=== PATIENT | male | born 1970 | race Caucasian/White ===

== ENCOUNTER 2019-04-14 13:05 | Outpatient (CLI) | payer OTHER | END 2019-04-14 13:06 | disposition critical access hospital (66) | LOC: EMS 13:05 | PROVIDERS: ATTEND Surgery | DX: R55 Syncope and collapse (principal) | CPT/HCPCS: A0425; A0429 ==

== ENCOUNTER 2019-04-14 13:25 | Emergency (ER) | payer OTHER ==
--- NOTE | 2019-04-14 13:55 | XRAY Report ---
Reason: Chest Pain Procedure Date: 04/14/2019 Accession Number: [id number] / [id number] Procedure: XR - Chest 1 View X-Ray CPT Code: 64698 Final Report FULL RESULT: EXAM: CHEST RADIOGRAPHY EXAM DATE: 04/14/2019 01:49 PM. CLINICAL HISTORY: Dry cough for 1 week, chest pain, syncopal episode. COMPARISON: None. TECHNIQUE: 1 view. FINDINGS: Lungs/Pleura: No focal opacities evident. No pleural effusion. No pneumothorax. Mediastinum: Within exam limitations, the cardiomediastinal contour is normal. Other: None. IMPRESSION: Normal single view chest. RADIA
[2019-04-14 14:00] LABS: BASOPHILS % (AUTO) 0.2 %; EOSINOPHILS # (AUTO) 0.1 10^3/uL (0.0-0.7); EOSINOPHILS % (AUTO) 0.9 %; HGB - HEMOGLOBIN 15.4 g/dL (14.0-18.0); LYMPHOCYTES # (AUTO) 0.8 10^3/uL (1.5-3.5); LYMPHOCYTES % (AUTO) 6.4 %; MEAN CORPUSCULAR HEMOGLOBIN 31.5 pg (27.0-31.0); MEAN CORPUSCULAR HGB CONC 33.2 g/dL (32.0-36.0); MEAN CORPUSCULAR VOLUME 94.9 fL (80.0-94.0); MONOCYTES # (AUTO) 0.8 10^3/uL (0.0-1.0); MONOCYTES % (AUTO) 6.4 %; NEUTROPHILS # (AUTO) 11.2 10^3/uL (1.5-6.6); NEUTROPHILS % (AUTO) 85.7 %; PLT - PLATELET COUNT 233 10^3/uL (130-450); RED BLOOD COUNT 4.89 10^6/uL (4.70-6.10); RED CELL DISTRIBUTION WIDTH 11.7 % (12.0-15.0); WHITE BLOOD COUNT 13.1 x10^3/uL (4.8-10.8)
[2019-04-14 14:14] LABS: ALBUMIN 4.4 g/dL (3.2-5.5); ALBUMIN/GLOBULIN RATIO 1.3 (1.0-2.2); BILIRUBIN,TOTAL 0.7 mg/dL (0.2-1.0); CALCIUM 9.2 mg/dL (8.5-10.3); CREATININE 0.9 mg/dL (0.6-1.2); TOTAL PROTEIN 7.9 g/dL (6.7-8.2)
[2019-04-14] MEDS ORDERED: SODIUM CHLORIDE 0.9% 1,000 ML IV ONE (14:25)
--- NOTE | 2019-04-14 14:34 | ED Physician Documentation ---
PD HPI SYNCOPE - Stated complaint Stated Complaint: SYNCOPE - Chief complaint Chief Complaint: Neuro - History obtained from History obtained from: Patient, EMS - History of Present Illness Witnessed: Witnessed Timing - onset: Today Duration: Minutes (1) Preceding symptoms: Light headed Associated symptoms: None. No: Seizure, Incontinant of urine, Incontinant of stool, Headache, Vision changes, Chest pain, Palpitations, Diaphoresis, Dyspnea, Nausea / vomiting, Abdominal pain Contributing factors: Decreased PO intake Injury occurred: None Pain level max: 0 Pain level now: 0 - Additional information Additional information: 48-year-old male was at the vets office today when his cat was receiving injections. He began to feel lightheaded and dizzy, had a syncopal event. He states he has a history of similar in the past. He only drinks a small glass of water this morning. Had diarrhea this morning as well. Has a history of ulcerative colitis, but is not currently taking any medications. Review of Systems Ten Systems: 10 systems reviewed and negative Constitutional: denies: Fever, Chills Throat: denies: Sore throat Cardiac: denies: Chest pain / pressure, Palpitations Respiratory: denies: Dyspnea, Cough, Wheezing GI: denies: Abdominal Pain, Nausea, Vomiting, Diarrhea : denies: Dysuria Skin: denies: Rash Musculoskeletal: denies: Neck pain, Back pain Neurologic: denies: Focal weakness, Numbness, Seizure, Headache PD PAST MEDICAL HISTORY - Past Medical History Past Medical History: Yes GI: Ulcerative colitis - Past Surgical History Past Surgical History: Yes - Present Medications Home Medications: Ambulatory Orders Medication Instructions Recorded Confirmed No Known Home Medications 04/14/19 04/14/19 - Allergies Allergies/Adverse Reactions: Allergies Allergy/AdvReac Type Severity Reaction Status Date / Time No Known Drug Allergies Allergy Verified 04/14/19 13:35 - Social History Does the pt smoke?: No Smoking Status: Never smoker Does the pt drink ETOH?: No Does the pt have substance abuse?: No - Immunizations Immunizations: TDAP >10years/unknown PD ED PE NORMAL - Vitals Vital signs reviewed: Yes - General General: Alert and oriented X 3, No acute distress, Well developed/nourished - HEENT HEENT: Atraumatic, PERRL, EOMI, Pharynx benign, Other (Dry lips and tongue) - Neck Neck: Supple, no meningeal sign, No bony TTP - Cardiac Cardiac: RRR, No murmur, Strong equal pulses - Respiratory Respiratory: No respiratory distress, Clear bilaterally - Abdomen Abdomen: Soft, Non tender, Non distended - Derm Derm: Warm and dry, No rash - Extremities Extremities: No edema - Neuro Neuro: Alert and oriented X 3 - Psych Psych: Normal mood, Normal affect Results - Vitals Vitals: Vital Signs - 24 hr 04/14/19 04/14/19 04/14/19 13:25 14:02 14:30 Temperature 36.6 C Heart Rate 83 72 76 Respiratory 16 12 13 Rate Blood Pressure 123/87 H 104/83 H 119/81 H O2 Saturation 98 97 98 04/14/19 04/14/19 15:30 16:00 Temperature Heart Rate 92 96 Respiratory 14 12 Rate Blood Pressure 133/84 H 125/77 O2 Saturation 98 99 Oxygen O2 Source Room air - EKG (time done) 1342 Rate: Rate (enter#) (78) Rhythm: NSR Valera: Normal Intervals: Normal [place] QRS: Normal Ischemia: Non specific changes - Labs Labs: Laboratory Tests 04/14/19 04/14/19 04/14/19 13:54 13:54 13:54 WBC 13.1 H RBC 4.89 Hgb 15.4 Hct 46.4 MCV 94.9 H MCH 31.5 H MCHC 33.2 RDW 11.7 L Plt Count 233 MPV 10.0 Neut # (Auto) 11.2 H Lymph # (Auto) 0.8 L Winn # (Auto) 0.8 Eos # (Auto) 0.1 Baso # (Auto) 0.0 Absolute Nucleated RBC 0.00 Nucleated RBC % 0.0 Sodium 139 Potassium 4.3 Chloride 98 L Carbon Dioxide 28 Anion Gap 13.0 BUN 19 Creatinine 0.9 Estimated GFR (MDRD) 89 Glucose 101 H Calcium 9.2 Total Bilirubin 0.7 AST 23 ALT 31 Alkaline Phosphatase 100 Troponin I High Sens 2.7 Total Protein 7.9 Albumin 4.4 Globulin 3.5 Albumin/Globulin Ratio 1.3 Lipase 39 - Rads (name of study) Chest x-ray Radiology: Prelim report reviewed, EMP read contemporaneously, See rad report (Normal single view chest. ) PD MEDICAL DECISION MAKING - ED course Complexity details: reviewed results, re-evaluated patient, considered differential, d/w patient ED course: 48-year-old male presents the emergency department after what sounds like a vasovagal syncopal event today. No evidence of cardiac arrhythmia. No signif icant lab abnormalities. Feels better after IV fluids. We will continue supportive care and have him follow-up with his doctor for further care. Patient counseled regarding signs and symptoms for which I believe and urgent re-evaluation would be necessary. Patient with good understanding of and agreement to plan and is comfortable going home at this time This document was made in part using voice recognition software. While efforts are made to proofread this document, sound alike and grammatical errors may occur. Departure - Departure Disposition: 01 Home, Self Care Clinical Impression: Vasovagal syncope Condition: Good Instructions: ED Syncope Vasovagal Follow-Up: your,doctor in 1 week [Other] Comments: Drink plenty of fluids. Return if you worsen. Follow-up with your doctor as needed for further care. Discharge Date/Time: 04/14/19 16:34
[2019-04-14 16:30] VITALS: BP 125/77
== END 2019-04-14 16:34 | disposition home or self-care (01) ==
LOC: ED 13:25
DX: R55 Syncope and collapse (principal)
CPT/HCPCS: 36415; 71045; 80053; 83690; 84484; 85025; 93005; 96360; 99284

== ENCOUNTER 2019-04-30 08:00 | Outpatient (CLI) | payer OTHER ==
[2019-04-30 18:26] LABS: BASOPHILS % (AUTO) 0.3 %; EOSINOPHILS # (AUTO) 0.1 10^3/uL (0.0-0.7); EOSINOPHILS % (AUTO) 1.3 %; HGB - HEMOGLOBIN 14.4 g/dL (14.0-18.0); LYMPHOCYTES # (AUTO) 1.4 10^3/uL (1.5-3.5); LYMPHOCYTES % (AUTO) 20.1 %; MEAN CORPUSCULAR HEMOGLOBIN 31.4 pg (27.0-31.0); MEAN PLATELET VOLUME 10.5 fL (7.4-11.4); MONOCYTES # (AUTO) 0.5 10^3/uL (0.0-1.0); MONOCYTES % (AUTO) 7.8 %; NEUTROPHILS # (AUTO) 4.8 10^3/uL (1.5-6.6); NEUTROPHILS % (AUTO) 70.1 %; PLT - PLATELET COUNT 259 10^3/uL (130-450); RED BLOOD COUNT 4.59 10^6/uL (4.70-6.10); RED CELL DISTRIBUTION WIDTH 12.1 % (12.0-15.0); WHITE BLOOD COUNT 6.8 x10^3/uL (4.8-10.8)
[2019-04-30 18:44] LABS: ALBUMIN 4.3 g/dL (3.2-5.5); ALBUMIN/GLOBULIN RATIO 1.4 (1.0-2.2); BILIRUBIN,TOTAL 0.5 mg/dL (0.2-1.0); CREATININE 0.7 mg/dL (0.6-1.2); TOTAL PROTEIN 7.3 g/dL (6.7-8.2)
== END 2019-04-30 23:59 | disposition home or self-care (01) ==
LOC: LAB.WCP 08:00
PROVIDERS: ATTEND Family Medicine
DX: R41.3 Other amnesia (principal); K51.90 Ulcerative colitis, unspecified, without complications; R55 Syncope and collapse
CPT/HCPCS: 36415; 80053; 84443; 85025

== ENCOUNTER 2020-05-31 08:02 | Outpatient (CLI) | payer OTHER ==
[2020-05-31 12:56] LABS: BASOPHILS % (AUTO) 0.1 %; EOSINOPHILS # (AUTO) 0.2 10^3/uL (0.0-0.7); HCT - HEMATOCRIT 45.3 % (42.0-52.0); HGB - HEMOGLOBIN 15.1 g/dL (14.0-18.0); LYMPHOCYTES # (AUTO) 2.3 10^3/uL (1.5-3.5); LYMPHOCYTES % (AUTO) 31.2 %; MEAN CORPUSCULAR HEMOGLOBIN 32.2 pg (27.0-31.0); MEAN CORPUSCULAR HGB CONC 33.3 g/dL (32.0-36.0); MEAN CORPUSCULAR VOLUME 96.6 fL (80.0-94.0); MEAN PLATELET VOLUME 10.4 fL (7.4-11.4); MONOCYTES # (AUTO) 0.7 10^3/uL (0.0-1.0); MONOCYTES % (AUTO) 10.2 %; NEUTROPHILS % (AUTO) 55.2 %; PLT - PLATELET COUNT 229 10^3/uL (130-450); RED BLOOD COUNT 4.69 10^6/uL (4.70-6.10); RED CELL DISTRIBUTION WIDTH 11.9 % (12.0-15.0); WHITE BLOOD COUNT 7.2 x10^3/uL (4.8-10.8)
[2020-05-31 14:10] LABS: ALBUMIN 4.1 g/dL (3.2-5.5); ALBUMIN/GLOBULIN RATIO 1.4 (1.0-2.2); ALKALINE PHOSPHATASE 74 IU/L (42-121); ALT ALANINE AMINOTRANSFERASE 17 IU/L (10-60); AST ASPARTATE AMINOTRANSFERASE 18 IU/L (10-42); BILIRUBIN,TOTAL 0.6 mg/dL (0.2-1.0); BUN - BLOOD UREA NITROGEN 21 mg/dL (6-20); CARBON DIOXIDE - CO2 25 mmol/L (21-32); CHLORIDE 101 mmol/L (101-111); CHOL/HDL RATIO 4.3 (<5.0); CHOLESTEROL 186 mg/dL; CREATININE 1.1 mg/dL (0.6-1.2); GFR - MDRD 71 (>89); GLUCOSE 98 mg/dL (70-100); HDL CHOLESTEROL 43 mg/dL; LDL CHOLESTEROL,CALCULATED 106 mg/dL; LDL/HDL RATIO 2.5 (<3.6); POTASSIUM 3.9 mmol/L (3.5-5.0); SODIUM 134 mmol/L (135-145); TRIGLYCERIDES 183 mg/dL; VLDL CHOLESTEROL 37 mg/dL
== END 2020-05-31 23:59 | disposition home or self-care (01) ==
LOC: LAB.WCP 08:02
PROVIDERS: ATTEND Family Medicine
DX: Z00.00 Encounter for general adult medical examination without abnormal findings (principal); Z12.5 Encounter for screening for malignant neoplasm of prostate
CPT/HCPCS: 36415; 80053; 80061; 83721; 84153; 85025

== ENCOUNTER 2020-06-03 17:42 | Outpatient (CLI) | payer OTHER | END 2020-06-03 17:43 | disposition home or self-care (01) | LOC: COV 17:42 | PROVIDERS: ATTEND Surgery | DX: Z01.812 Encounter for preprocedural laboratory examination (principal); K40.90 Unilateral inguinal hernia, without obstruction or gangrene, not specified as recurrent; Z20.822 Contact with and (suspected) exposure to COVID-19 ==

== ENCOUNTER 2020-06-07 10:00 | Day surgery (SDC) | payer OTHER ==
[~2020-06-07 10:00] MED LIST: ceFAZolin 2 GM/50 ML 2 GM/50 ML BAG IV ONE
[2020-06-07] MEDS ORDERED: ceFAZolin 1 GM VIAL ONE (10:54)
[2020-06-07] MEDS ORDERED: LIDOCAINE 2%-EPI 1:100000 20 ML MDV ONE (10:55)
[2020-06-07] MEDS ORDERED: BUPIVACAINE 0.5% PF 30 ML VIAL ONE (10:55)
[2020-06-07] MEDS ORDERED: SODIUM CHLORIDE 0.9% 10 ML ONE (10:55)
[2020-06-07] MEDS ORDERED: LACTATED RINGERS 1,000 ML IV ONE ×3 (10:59→12:47)
[2020-06-07] MEDS ORDERED: METOCLOPRAMIDE 10 MG/2 ML VIAL IVP PRN (11:09)
[2020-06-07] MEDS ORDERED: ONDANSETRON 4 MG/2 ML VIAL IVP PRN ×2 (11:09→12:29)
[2020-06-07] MEDS ORDERED: fentaNYL 100 MCG/2 ML VIAL IVP PRN (11:09)
[2020-06-07] MEDS ORDERED: NALOXONE 0.4 MG/ML VIAL IVP PRN (11:09)
[2020-06-07] MEDS ORDERED: HYDROmorphone 0.5 MG/0.5 ML SYRINGE IVP PRN (11:09)
[2020-06-07] MEDS ORDERED: ATROPINE ABBOJECT 1 MG/10 ML SYRINGE IVP PRN (11:09)
[2020-06-07] MEDS ORDERED: ePHEDrine 50 MG/ML VIAL IVP PRN (11:09)
[2020-06-07] MEDS ORDERED: MORPHINE 2 MG/ML CARPUJECT IVP PRN (11:09)
--- NOTE | 2020-06-07 11:09 | ANESTHESIA ---
Pre-Anesthesia VS, & Labs - Diagnosis left inguinal hernia - Procedure left inguinal hernia repair Vital Signs: Temp Pulse Resp BP Pulse Ox 36.8 C 77 16 124/80 99 06/07/20 10:16 06/07/20 10:16 06/07/20 10:16 06/07/20 10:16 06/07/20 10:16 Height: 5 ft 9 in Weight (kg): 73.1 kg Body Mass Index: 23.8 BMI Classification: Healthy weight - NPO >8 hours Home Medications and Allergies No Known Home Medications 04/14/19 Allergies/Adverse Reactions: Allergies Allergy/AdvReac Type Severity Reaction Status Date / Time No Known Drug Allergies Allergy Verified 04/14/19 13:35 Anes History & Medical History - Anesthetic History Anesthesia Complications: reports: No previous complications - Medical History Cardiovascular: reports: None Pulmonary: reports: None Gastrointestinal: reports: Ulcerative colitis Urinary: reports: None Musculoskeletal: reports: None Skin: reports: None Smoking Status: Never smoker History of Cancer?: No Exam General: Alert Dental: WNL Mouth Opening: Greater than 4 Fingerbreadths Neck Mobility: Normal Mallampati classification: II Respiratory: Lungs clear Cardiovascular: Regular rate, Normal S1, Normal S2 Plan Anesthesia Type: General Consent for Procedure(s) Verified and Reviewed: Yes Code Status: Attempt Resuscitation ASA classification: 2-Mild systemic disease Is this case an emergency?: No
[2020-06-07] MEDS ORDERED: ONDANSETRON 4 MG/2 ML VIAL ONE (11:38)
[2020-06-07] MEDS ORDERED: DEXAMETHASONE 4 MG/ML VIAL ONE (11:38)
[2020-06-07] MEDS ORDERED: fentaNYL 100 MCG/2 ML VIAL ONE (11:39)
[2020-06-07] MEDS ORDERED: BUPIVACAINE 0.5% PF 10 ML VIAL IM ONE (11:53)
[2020-06-07] MEDS ORDERED: ceFAZolin 1 GM VIAL IR ONE (11:54)
[2020-06-07] MEDS ORDERED: LIDOCAINE 2%-EPI 1:100000 20 ML MDV SUBQ ONE (11:54)
[2020-06-07] MEDS ORDERED: LACTATED RINGERS 1,000 ML IV SCH (12:00)
--- NOTE | 2020-06-07 12:27 | OPERATIVE REPORT ---
Operative Report - General Procedure Date: 06/07/20 Planned Procedure: Left inguinal hernia repair Pre-Op Diagnosis: Painful and troublesome left inguinal hernia Procedure Performed: Left inguinal hernia repair Post Op Diagnosis: Painful and troublesome left inguinal hernia - Procedure Note Primary Surgeon: Turner Anesthesia Provider: Abraham Anesthesia Technique: General LMA, Local Pathology: None Estimated Blood Loss (mL): 10 Findings: Large indirect inguinal hernia Complications: None apparent - Other Other Information/Narrative: After obtaining informed consent, the patient is brought to the operating room and placed in the supine position on the operating table. Following successful induction of general endotracheal anesthesia, appropriate padding of all bony prominences, and placement of appropriate monitors, the abdomen was prepped and draped in the standard surgical fashion. A timeout was held per scope protocol. All elements of the surgical safety checklist were followed before, during, and after the procedure. We began the procedure by infiltrating a mixture of local anesthetics medial to the anterior superior iliac spine on the left. This was done to create an ileal inguinal nerve block. We then selected a site for an incision in the left lower quadrant just superior and lateral to the pubic tubercle. This area was anesthetized with additional local anesthetic and an incision was created here.The incision was carried down through the skin and subcutaneous tissue to reveal the fascia of the external oblique aponeurosis. Retractor was placed and the aponeurosis was opened in direction of its fibers. The ilioinguinal nerve was immediately identified. We continued by identifying the spermatic cord and gently encircling it with a [place] drain. The hernia sac was carefully dissected free from the cord structures and was noted to be in the inferior medial position. The sac was in the indirect position. We carefully dissected the spermatic cord from the sac. The hernia sac was then placed back into the abdominal cavity. We elected to repair the hernia with a large Prolene hernia system mesh implant. This was dipped in Ancef containing solution and then deployed into the defect. The posterior leaflet was straightened and flattened in the preperitoneal space. The anterior leaflet was then nicked medially to provide a place for the spermatic cord and then closed with a Vicryl suture. The more inferior aspect was then sewn to Jose's ligament medially. Laterally it was tucked under the external beak aponeurosis. The wound was checked for hemostasis and irrigated with warm saline solution. It was aspirated free of all fluid and particulate matter. The extra oblique aponeurosis was then closed with a running locking Vicryl suture Val's fascia was closed with Vicryl suture and Monocryl stitches were placed in the skin. All sponge, needle, and instrument counts were correct at the conclusion of the case. The patient was allowed awaken from anesthesia without difficulty and taken to the postanesthesia care unit in good condition.
[2020-06-07] MEDS ORDERED: IBUPROFEN 600 MG TABLET PO PRN (12:29)
[2020-06-07] MEDS ORDERED: oxyCODONE 5 MG TABLET PO PRN (12:29)
[2020-06-07] MEDS ORDERED: ACETAMINOPHEN 325 MG TABLET PO PRN (12:29)
[2020-06-07] MEDS ORDERED: oxyCODONE 5 MG TABLET ONE (13:14)
[2020-06-07 13:50] VITALS: BP 124/80
--- NOTE | 2020-06-07 14:54 | ANESTHESIA POST OP EVALUATION ---
Anesthesia Post Eval - Post Anesthesia Eval Vitals: Last Vital Signs Temp 36.8 C 06/07/20 13:40 Pulse 77 06/07/20 13:40 Resp 16 06/07/20 13:40 BP 124/80 06/07/20 13:40 Pulse Ox 99 06/07/20 13:40 CV Function Including HR & BP: positive: Stable Pain Control: positive: Satisfactory Nausea & Vomiting: positive: Negative Mental Status: positive: Patient Participates Respiratory Status: Airway Patent Hydration Status: Satisfactory Anesthesia Complications: positive: None
== END 2020-06-07 10:01 | disposition home or self-care (01) ==
LOC: SDS 10:00
PROVIDERS: ATTEND Surgery
DX: K40.90 Unilateral inguinal hernia, without obstruction or gangrene, not specified as recurrent (principal)
CPT/HCPCS: 49505; A9270; C1781; J0690; J7120

== ENCOUNTER 2022-03-23 08:48 | Outpatient (CLI) | payer OTHER ==
[2022-03-23 12:44] LABS: BASOPHILS % (AUTO) 0.2 %; EOSINOPHILS # (AUTO) 0.3 10^3/uL (0.0-0.7); EOSINOPHILS % (AUTO) 3.4 %; HCT - HEMATOCRIT 48.8 % (42.0-52.0); HGB - HEMOGLOBIN 15.9 g/dL (14.0-18.0); LYMPHOCYTES # (AUTO) 2.3 10^3/uL (1.5-3.5); LYMPHOCYTES % (AUTO) 25.5 %; MEAN CORPUSCULAR HEMOGLOBIN 31.7 pg (27.0-31.0); MEAN CORPUSCULAR HGB CONC 32.6 g/dL (32.0-36.0); MEAN CORPUSCULAR VOLUME 97.4 fL (80.0-94.0); MEAN PLATELET VOLUME 10.3 fL (7.4-11.4); MONOCYTES # (AUTO) 0.7 10^3/uL (0.0-1.0); MONOCYTES % (AUTO) 7.9 %; NEUTROPHILS # (AUTO) 5.7 10^3/uL (1.5-6.6); NEUTROPHILS % (AUTO) 62.7 %; PLT - PLATELET COUNT 246 10^3/uL (130-450); RED BLOOD COUNT 5.01 10^6/uL (4.70-6.10); RED CELL DISTRIBUTION WIDTH 12.6 % (12.0-15.0); WHITE BLOOD COUNT 9.1 x10^3/uL (4.8-10.8)
[2022-03-23 12:52] LABS: ALBUMIN 4.4 g/dL (3.2-5.5); ALBUMIN/GLOBULIN RATIO 1.3 (1.0-2.2); ALKALINE PHOSPHATASE 86 IU/L (42-121); ALT ALANINE AMINOTRANSFERASE 29 IU/L (10-60); AST ASPARTATE AMINOTRANSFERASE 22 IU/L (10-42); BILIRUBIN,TOTAL 0.9 mg/dL (0.2-1.0); BUN - BLOOD UREA NITROGEN 14 mg/dL (6-20); CALCIUM 9.7 mg/dL (8.5-10.3); CARBON DIOXIDE - CO2 30 mmol/L (21-32); CHLORIDE 102 mmol/L (101-111); CHOL/HDL RATIO 4.5 (<5.0); CHOLESTEROL 240 mg/dL; GFR - MDRD 78 (>89); GLUCOSE 97 mg/dL (70-100); HDL CHOLESTEROL 53 mg/dL; LDL CHOLESTEROL,CALCULATED 159 mg/dL; SODIUM 139 mmol/L (135-145); TOTAL PROTEIN 7.7 g/dL (6.7-8.2); TRIGLYCERIDES 138 mg/dL; VLDL CHOLESTEROL 28 mg/dL
[2022-03-23 13:02] LABS: THYROID STIMULATING HORMONE 1.2 uIU/mL (0.34-5.60)
== END 2022-03-23 08:49 | disposition home or self-care (01) ==
LOC: LAB.N 08:48
PROVIDERS: ATTEND Nurse Practitioner Family
DX: Z00.00 Encounter for general adult medical examination without abnormal findings (principal); Z12.5 Encounter for screening for malignant neoplasm of prostate
CPT/HCPCS: 36415; 80053; 80061; 83721; 84153; 84443; 85025

== ENCOUNTER 2022-05-31 13:34 | Outpatient (CLI) | payer OTHER ==
[2022-05-31 14:27] VITALS: BP 114/72
--- NOTE | 2022-05-31 14:27 | SLEEP CARE CONSULTATION ---
Information from patient questionnaire entered by Alice Ames. I have reviewed and concur with the information entered by Alice Ames. This document represents the service I personally performed and the decisions made by me, Shonda Horner ARNP. History of Present Illness Service Date and Time: 05/31/2022 1334 Reason for Visit: New patient Chief Complaint: reports: Snoring, Other (DEVIATED SEPTUM ) Date of Onset: "forever" - snoring Usual bedtime: 330AM Time it takes to fall asleep: 15-20MIN Snores at night: Yes Observed to quit breathing while asleep: No Sleeps alone due to snoring: No Number of times waking at night: 2-4 Reasons for waking at night: reports: Snoring, Bathroom, Other (TURNING OVER, BAD DREAM). denies: Choking, Gasping for air Toss, Turn, or Twitch while sleeping: Yes Recalls having dreams: Yes Usually gets out of bed at: 11AM-12PM Feels refreshed in the morning: Yes (usually, sometimes he does not) Morning headache: Yes (1-2 times a month; RESOLVES AFTER MOVING AROUND AND DRINKING COFFEE ) Sleepy or fatigued during the day: No Ever fallen asleep while driving: No Takes day naps: Yes (1-2 times a week; 15-20 minutes) Dreams during day naps: Yes Prior sleep studies: No Additional HPI information: I had the pleasure of seeing TON FARRAR today regarding the possibility of him having a sleep disorder. His current complaints are snoring and deviated nasal septum. His primary doctor referred him to be checked for sleep apnea. He does snore and will sometimes wake himself up with his snoring. 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 Patient is and lives in [place]. Have you smoked in the past 12 months: No Alcohol use: No Caffeine use: Yes Caffeine amount and frequency: 4-6 CUPS DAILY Family History Family history of sleep disordered breathing: Yes Family Hx Sleep Apnea: Mother: Snoring, Sibling: Snoring Allergies and Home Medications Known drug allergies: No Drug allergies reviewed: Yes Home medication list reviewed: Yes (OTC vitamins; no daily medications) Allergy and home medication list: Allergies No Known Drug Allergies Allergy (Verified 05/30/22 08:58) Review of Systems Cardiovascular: denies: high blood pressure Gastrointestinal: denies: heartburn Neurological: reports: headaches (history of headaches/migraines), other (DIZZINESS). denies: head trauma Psychiatric: denies: anxiety, depression Ear/Nose/Throat: reports: nasal congestion, sinus problems, nose bleeds, wisdom teeth removed. denies: tonsillectomy Musculoskeletal: reports: joint pain, neck pain, back pain Immunologic: denies: allergies to food or environment Physical Exam Vital signs obtained and entered by: ALICE Castillo MA Blood Pressure: 114/72 (LEFT ARM) Cuff size: regular Heart Rate: 62 O2 Saturation: 98 Height: 5 ft 9 in Weight: 166 lb Body Mass Index: 24.5 BMI Classification: Normal Neck circumference: 15.25 Mouth and throat: normal Soft palate: normal Hard palate: normal Uvula: normal Uvula visualization: 50% Mallampati Class II Tongue: enlarged in size with teeth jarrett on lateral edges Tonsils: 1+ Neck: normal w/o lymphadenopathy or thyromegaly Heart: regular rate and rhythm Lungs: clear bilaterally Impression and Plan 1. Suspected Obstructive Sleep Apnea-Hypopnea Syndrome, as suggested by a history of loud and irregular snoring, morning headache and cognitive impairment. Narrow oropharynx and obesity are common predisposing factors for obstructive sleep apnea-hypopnea syndrome. I recommend proceeding to polysomnography to confirm the diagnosis and to assess severity. If the patient has significant sleep disordered breathing, a manual CPAP titration study will also be performed to find the optimal treatment pressure. I informed the patient of what the sleep studies involve and after some discussion, obtained agreement to proceed. The pathophysiology of obstructive sleep apnea-hypopnea syndrome was discussed with the patient and health risks of cardiovascular and cerebrovascular disease if not treated. Risks of drowsy driving discussed in detail and patient advised to avoid long distance driving and to sinker puller at the first sign of drowsiness. Patient agreed to plan. * Schedule polysomnography * Avoid long distance driving or driving when feeling sleepy. * Avoid alcohol, sedative and muscle relaxant around bedtime. * Review instructions provided by trained office staff on how to prepare for the sleep study. * Return for follow-up after sleep study completed. Visit Type: In Office Time Spent with Patient (minutes): 26 Provider Statement: I spent 100% of the Face to Face Visit with the patient with greater than 50% spent counseling the patient and coordination of care.
== END 2022-05-31 13:35 | disposition home or self-care (01) ==
LOC: SC 13:34
PROVIDERS: ATTEND Nurse Practitioner Family
DX: R06.83 Snoring (principal); R51.9 Headache, unspecified
CPT/HCPCS: 99202; 99212

== ENCOUNTER 2022-07-19 09:16 | Outpatient (CLI) | payer OTHER | END 2022-07-19 09:17 | disposition home or self-care (01) | LOC: SC 09:16 | PROVIDERS: ATTEND Nurse Practitioner Family | DX: G47.33 Obstructive sleep apnea (adult) (pediatric) (principal); R09.02 Hypoxemia | CPT/HCPCS: 95806 ==

== ENCOUNTER 2022-08-10 11:17 | Outpatient (CLI) | payer OTHER ==
--- NOTE | 2022-08-10 11:53 | Sleep Patient Instructions ---
Sleep Center Visit Summary - Patient Visit Information Reason for Visit: Sleep study followup - Patient Instructions Additional Instructions: You are to start Positional therapy to control your sleep apnea. You may obtain positional belts or other commercial devices online. You may also use pillows to position yourself on your side or a T shirt with balls sewn into the back to help keep you on your side to sleep. We would like to follow up with you in a month to check effectiveness of therapy. Please follow up in the sleep care office in 1 month. - Clinic Information Contact: [facility] [address] [place] [id number] [email or web address] T: [phone]
--- NOTE | 2022-08-10 11:58 | SLEEP CARE CONSULTATION ---
Information from patient questionnaire entered by Alice Ames. I have reviewed and concur with the information entered by Alice Ames. This document represents the service I personally performed and the decisions made by , Shonda Horner ARNP. History of Present Illness Service Date and Time: 08/10/2022 111 Initial [place] Sleepiness Scale score: 8 (04/26/22) Current [place] Sleepiness Scale score: 4 (08/10/22) Additional HPI information: TON FARRAR returns for follow up and results of the recently performed home sleep study. His sleep study showed mild obstructive sleep apnea with an average AHI of 12.4 and ceci oxygen saturation of 88%. I explained the pathophysiology behind obstructive sleep apnea. We then spent quite a bit of time discussing different treatment options. For mild obstructive sleep apnea, surgery and oral appliance are alternatives to nasal CPAP therapy but in moderate or severe cases, nasal CPAP is the most effective and reliable treatment. Because apnea is primarily in supine position, then positional management therapy could be effective. Methods discussed such as positioning with pillows, using a T-shirt with tennis balls in the back or commercial products that have a pillow format on back to prevent supine sleep. I reviewed the impact of weight changes on sleep apnea and strongly recommended losing weight. Patient does not drink alcohol. Patient was cautioned about risks of drowsy driving until sleepiness symptoms resolve. Patient denies drowsy driving. Sleep Study - Results Type of Sleep Study: Polysomnography (COMPLETED 07/19/22) Prior sleep studies: No Polysomnography/Home Sleep Study results: Physician Impression: The quality of the study is good. The length of the study is adequate (> 240 minutes). Please also see the tabulated and graphic data. 1. Obstructive Sleep Apnea-Hypopnea (ICD-10 G47.33), mild, with an AHI of 12.4/hr and ceci SaO2 of 88%. During the study, the patient had 72 apneas (71 obstructive, 1 central, 0 mixed) and 38 hypopneas. The longest episode lasted 66.5 seconds. The respiratory events occurred almost exclusively during supine sleep (supine AHI was 39.6 and non-supine, 2.76). 2. Hypoxemia (ICD-10 R09.02), minimal, with the lowest oxygen saturation of 88 % and 0.1 minutes with SaO2 under 90%. Baseline oxygen saturation was normal (Average oxygen saturation was 95%). Allergies and Home Medications Known drug allergies: No Drug allergies reviewed: Yes Home medication list reviewed: Yes (no changes) Allergy and home medication list: Allergies No Known Drug Allergies Allergy (Verified 08/09/22 14:24) Review of Systems Review of systems same as previous: Yes (no changes) Physical Exam Vital signs obtained and entered by: ALICE Castillo MA Blood Pressure: 124/70 (LEFT ARM) Cuff size: regular Heart Rate: 64 O2 Saturation: 98 Height: 5 ft 9 in Weight: 165 lb 3.2 oz Body Mass Index: 24.3 BMI Classification: Normal Impression and Plan 1. Obstructive Sleep Apnea-Hypopnea Syndrome, mild, with minimal hypoxemia with lowest oxygen saturation of 88%. Obviously this is the cause of the patients symptoms of unrefreshed sleep, and excessive daytime sleepiness. Since patients apnea is primarily in supine position, patient advised to try positional therapy and agreed with plan. He is also advised to lose weight as this will reduce snoring and apnea. An oral appliance can also be used for snoring but often is not covered by insurance. Follow up is scheduled for one month to check effectiveness. He was also advised that if he should like to change to CPAP therapy that he may call office and we will set this up for him. He voiced understanding. * Positional therapy * Maintain a healthy weight * Avoid supine sleep * Return in one month. I will assess response to therapy at that time. Counseling Topics: Sleeping position, Weight control Visit Type: In Office Time Spent with Patient (minutes): 20 Provider Statement: I spent 100% of the Face to Face Visit with the patient with greater than 50% spent counseling the patient and coordination of care.
[2022-08-10 11:59] VITALS: BP 124/70
== END 2022-08-10 11:18 | disposition home or self-care (01) ==
LOC: SC 11:17
PROVIDERS: ATTEND Nurse Practitioner Family
DX: G47.33 Obstructive sleep apnea (adult) (pediatric) (principal)
CPT/HCPCS: 99212; 99213

== ENCOUNTER 2022-09-14 13:33 | Outpatient (CLI) | payer OTHER ==
--- NOTE | 2022-09-14 13:53 | SLEEP CARE CONSULTATION ---
Information from patient questionnaire entered by Alice Ames. I have reviewed and concur with the information entered by Alice Ames. This document represents the service I personally performed and the decisions made by me, Shonda Horner ARNP. History of Present Illness Service Date and Time: 09/14/2022 1333 Previous diagnosis: Mild, Obstructive Sleep Apnea-Hypopnea Syndrome AHI: 13.4 (in 07/2022) Reason for follow up: one month (F/U NO CPAP) Prior sleep studies: No HPI additional information: TON FARRAR was diagnosed to have mild, AHI 12.4, obstructive sleep apnea- hypopnea syndrome and returned today for Positional therapy one month follow-up. Sleep Study - Results Prior sleep studies: No CPAP Compliance Data Compliance data discussion: He states he is mostly able to stay on his side. He is not using any device. His cats will sleep behind his back sometimes and help him stay on his sides. His will also let him know if he rolls onto his back because he is snoring and he will return to his side. Subjective On therapy, patient: reports: being more awake and alert during the day. denies: drowsiness while driving Initial [place] Sleepiness Scale score: 8 (04/26/22) Current [place] Sleepiness Scale score: 4 (09/14/22) Allergies and Home Medications Known drug allergies: No Drug allergies reviewed: Yes Home medication list reviewed: Yes (no changes) Allergy and home medication list: Allergies No Known Drug Allergies Allergy (Verified 09/13/22 14:27) Review of Systems Review of systems same as previous: Yes (no changes) Physical Exam Vital signs obtained and entered by: LAICE Castillo MA Blood Pressure: 110/70 (LEFT ARM) Cuff size: regular Heart Rate: 98 O2 Saturation: 63 Height: 5 ft 9 in Weight: 166 lb 12.8 oz Body Mass Index: 24.6 BMI Classification: Normal Impression and Plan 1. Obstructive Sleep Apnea-Hypopnea Syndrome, mild. Using positional therapy, the patient has felt like he is more alert and awake during the day. He has not noted a difference in his quality of sleep and is still a little tired upon awakening. He states this resolves quickly in the morning. He feels he can maintain sleeping on his sides and that he is feeling improvement when using positional therapy to control his sleep apnea. He was advised to look into positional devices to help him stay on his side and he voiced understanding. He is satisfied with therapy and feels he can follow up next year. Patient's apnea severity and rationale for treatment to reduce apnea, improve sleep quality and reduce cardiovascular and cerebrovascular events was reviewed. -Continue positional therapy -Maintain a healthy weight -Call this office if any problems -Return for follow up in 1 year, or sooner if concerns arise Counseling Topics: Sleeping position Visit Type: In Office Time Spent with Patient (minutes): 13 Provider Statement: I spent 100% of the Face to Face Visit with the patient with greater than 50% spent counseling the patient and coordination of care.
[2022-09-14 13:56] VITALS: BP 110/70
== END 2022-09-14 13:34 | disposition home or self-care (01) ==
LOC: SC 13:33
PROVIDERS: ATTEND Nurse Practitioner Family
DX: G47.33 Obstructive sleep apnea (adult) (pediatric) (principal)
CPT/HCPCS: 99212

== ENCOUNTER 2022-11-02 07:47 | Day surgery (SDC) | payer OTHER ==
[2022-11-02] MEDS ORDERED: LACTATED RINGERS 1,000 ML IV ONE (08:20)
--- NOTE | 2022-11-02 08:55 | ANESTHESIA ---
Pre-Anesthesia VS, & Labs - Diagnosis screening exam - Procedure colonoscopy Vital Signs: Temp Pulse Resp BP Pulse Ox O2 Flow Rate 36.2 C L 61 16 137/85 H 98 11/02/22 08:19 11/02/22 08:19 11/02/22 08:19 11/02/22 08:19 11/02/22 08:19 Height: 5 ft 9.5 in Weight (kg): 74.5 kg Body Mass Index: 23.9 BMI Classification: Normal - NPO >8 hours Home Medications and Allergies No Known Home Medications 09/14/22 Allergies/Adverse Reactions: Allergies Allergy/AdvReac Type Severity Reaction Status Date / Time No Known Drug Allergies Allergy Verified 09/14/22 13:37 Anes History & Medical History - Anesthetic History Anesthesia Complications: reports: No previous complications - Medical History Cardiovascular: reports: None Pulmonary: reports: None Gastrointestinal: reports: Ulcerative colitis Urinary: reports: None Neuro: reports: None Musculoskeletal: reports: None Endocrine/Autoimmune: reports: None Blood Disorders: reports: None Skin: reports: None Smoking Status: Never smoker Psychosocial: reports: No issues indicated History of Cancer?: No - Surgical History General: reports: Colonoscopy, Other (hernia repair) Exam General: Alert, Oriented x3, Cooperative, No acute distress Dental: WNL Mouth Openin Fingerbreadth Neck Mobility: Normal Mallampati classification: II Thyromental Distance: 4-6 cm Mental/Cognitive Status: Alert/Oriented X3, Normal for patient Plan Anesthesia Type: General, Total IV Consent for Procedure(s) Verified and Reviewed: Yes Code Status: Attempt Resuscitation ASA classification: 2-Mild systemic disease Is this case an emergency?: No
--- NOTE | 2022-11-02 09:29 | HISTORY & PHYSICAL EXAMINATION ---
Chief Complaint - Chief Complaint Chief Complaint: here for a colonoscopy History of Present Illness - History Obtained From Records Reviewed: yes History obtained from: pt Exam Limitations: none - History of Present Illness HPI Comment/Other: colon cancer screening. no gi problems. no anemia History - Past Medical History Cardiovascular: reports: None Respiratory: reports: None Neuro: reports: None Endocrine/Autoimmune: reports: None GI: reports: Ulcerative colitis : reports: None Psych: reports: None Musculoskeletal: reports: None Derm: reports: None MRSA Hx?: No - Past Surgical History General: reports: Colonoscopy, Other (hernia repair) Meds/Allgy - Home Medications Home Medications: Ambulatory Orders Medication Instructions Recorded Confirmed No Known Home Medications 09/14/22 09/14/22 - Allergies Allergies/Adverse Reactions: Allergies Allergy/AdvReac Type Severity Reaction Status Date / Time No Known Drug Allergies Allergy Verified 09/14/22 13:37 Review of Systems - Other Findings Other Findings: 10 pt ros as above otherwise unremarkable Exam - Vital Signs Vital Signs: Vital Signs x48h Temp Pulse Resp BP Pulse Ox 11/02/22 08:19 36.2 C L 61 16 137/85 H 98 - Physical Exam General Appearance: positive: No acute distress, Alert Eyes Bilateral: positive: PERRL, EOMI ENT: positive: No signs of dehydration Neck: positive: No JVD, Trachea midline Respiratory: positive: No respiratory distress Cardiovascular: positive: Regular rate & rhythm Abdomen: positive: No distention Neurologic/Psychiatric: positive: Oriented x3
[2022-11-02] MEDS ORDERED: LACTATED RINGERS 100 ML IV ONE (10:29)
[2022-11-02 11:09] VITALS: BP 118/75; O2SAT 99
--- NOTE | 2022-11-02 12:05 | ANESTHESIA POST OP EVALUATION ---
Anesthesia Post Eval - Post Anesthesia Eval Vitals: Last Vital Signs Temp 36.2 C L 11/02/22 11:07 Pulse 70 11/02/22 11:07 Resp 16 11/02/22 11:07 BP 118/75 11/02/22 11:07 Pulse Ox 99 11/02/22 11:07 O2 Flow Rate CV Function Including HR & BP: Stable Pain Control: Satisfactory Nausea & Vomiting: Negative Mental Status: Baseline Respiratory Status: Airway Patent Hydration Status: Satisfactory Anesthesia Complications: None
== END 2022-11-02 07:48 | disposition home or self-care (01) ==
LOC: SDS 07:47
PROVIDERS: ATTEND Surgery
PROC: 0DBN8ZX Excision of Sigmoid Colon, Via Natural or Artificial Opening Endoscopic, Diagnostic (ICD-10-PCS; 2022-11-02)
PROC: 0DBP8ZX Excision of Rectum, Via Natural or Artificial Opening Endoscopic, Diagnostic (ICD-10-PCS; principal; 2022-11-02 09:15)
DX: Z12.11 Encounter for screening for malignant neoplasm of colon (principal); K51.30 Ulcerative (chronic) rectosigmoiditis without complications; K52.89 Other specified noninfective gastroenteritis and colitis
CPT/HCPCS: 45380; J7120